=== PATIENT | female | born 1970 | race African-American/Black ===

== ENCOUNTER 2021-03-16 11:15 | Day surgery (SDC) | payer OTHER ==
[~2021-03-16] VITALS: Ht 177.8 cm; Wt 75.2 kg
[~2021-03-16 11:15] MED LIST: BLAC160C PO; CETI10CA PO; CETI10TA16 PO; DIPH25CA58 PO; EPIPEN 2-P0.3 MG/0.3 IJ; HYDROmorphone 2 MG/ML VIAL IVP PRN; IV RINGERS,LACTATED 1000ML 1,000 ML IV SCH; MORPHINE SULFATE 2 MG/ML INJ. IVP PRN; MULT-445 PO; OMAL150V SQ; PRED20TA PO; PROCHLORPERAZINE 10 MG/2 ML VIAL. IVP PRN; SOY1TABL2 PO; fentaNYL PF VIAL 100 MCG/2 ML VIAL IVP PRN
[2021-03-16] MEDS ORDERED: PROPOFOL 10 MG/ML (20ML) VIAL. IV ONE (11:25)
[2021-03-16] MEDS ORDERED: LIDOCAINE 1% PF 5 ML VIAL. ONE (11:25)
[2021-03-16] MEDS ORDERED: fentaNYL PF VIAL 100 MCG/2 ML VIAL ONE ×2 (11:25→14:29)
[2021-03-16] MEDS ORDERED: MIDAZOLAM HCL/PF 2 MG/2 ML VIAL. ONE (11:25)
[2021-03-16 11:52] VITALS: BP 115/69
--- NOTE | 2021-03-16 12:04 | EKG ---
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
[2021-03-16 12:09] LABS: BASO % 1 % (0-3); EOS # 0.1 x10^3/uL (0.0-0.7); EOS % 3 % (0-3); HEMATOCRIT 35.5 % (36.0-47.0); HEMOGLOBIN 11.9 g/dL (12.0-15.5); LYMPH % 44 % (24-48); MEAN CORPUSCULAR HEMOGLOBIN 29 pg (25-35); MEAN CORPUSCULAR HGB CONC 34 g/dL (31-37); MEAN CORPUSCULAR VOLUME 86 fL (79-100); MONO # 0.5 x10^3/uL (0.0-1.1); MONO % 11 % (0-9); NEUT # 1.8 x10^3/uL (1.8-7.7); NEUT % 41 % (31-73); PLATELET COUNT 176 x10^3/uL (140-400); RED BLOOD COUNT 4.15 x10^6/uL (3.50-5.40); RED CELL DISTRIBUTION WIDTH 12.5 % (11.5-14.5); WHITE BLOOD COUNT 4.5 x10^3/uL (4.0-11.0)
[2021-03-16 12:20] LABS: CALCIUM 9.4 mg/dL (8.5-10.1); CREATININE 1.1 mg/dL (0.6-1.0); GFR 63.4; POTASSIUM 3.7 mmol/L (3.5-5.1)
[2021-03-16] MEDS ORDERED: BUPIVACAINE MPF 0.25% 30 ML VIAL. ONE (13:02)
[2021-03-16] MEDS ORDERED: ONDANSETRON PF 4 MG/2 ML VIAL. ONE (14:12)
[2021-03-16] MEDS ORDERED: PHENYLEPHRINE in 0.9% NACL PF 1 MG/10 ML SYRINGE. IV ONE (14:12)
[2021-03-16] MEDS ORDERED: DEXAMETHASONE SOD PHOS 4 MG/ML VIAL ONE (14:12)
[2021-03-16] MEDS: fentaNYL PF VIAL 100 MCG/2 ML VIAL IVP PRN ×2 (14:34→15:25)
[2021-03-16 14:59] VITALS: BP 160/87
--- NOTE | 2021-03-18 11:50 | PDOC4 ---
OPERATIVE NOTE Date: Date: Mar 16, 2021 Pre-Op Diagnosis: Bilateral axillary breast tissue Post-Op Diagnosis: Same Procedure Performed: Excision bilateral axillary breast tissue, CPT 60916-23 Surgeon: Dixie Marc MD Anesthesia Type: General Blood Loss: 20mL Specimans Obtained: Bilateral axillary breast tissue Findings: See operative note Complications: None Operative Note: Informed consent was obtained in the perioperative holding area. The patient was marked and photographed. The patient was then transported to the operating room and placed in the supine position. A surgical timeout was performed verifying the correct patient and the correct procedure. Sequential compression devices were applied to both lower extremities and were functioning prior to the induction of anesthesia. Antibiotics were administered. General endotracheal anesthesia was initiated. The chest and arms were prepped with Cholorprep and draped in the usual sterile fashion. For each side the procedure proceeded as follows: The markings were re-delineated. An elliptical incision was made encompassing the accessory tissue and the maximum skin laxity. The specimen was sent for pathology. Hemostasis was achieved with electrocautery. space was approximated with 2-0 Vicryl sutures. A Waterfall drain was was placed. The skin was approximated with 4-0 running Monocryl. A compression dressing was fashioned. The patient tolerated the procedure well without complications. Needle and sponge count were correct. DIXIE MARC MD Mar 18, 2021 11:50
--- NOTE | 2021-03-18 18:09 | PATHOLOGY ---
[facility] Accession Number: [id number] . 01 Material submitted: . PART A: breast - RIGHT AXILLARY BREAST TISSUE. Modifiers: right, axilla PART B: breast - LEFT AXILLARY BREAST TISSUE. Modifiers: left, axilla . 01 Clinical history: . EXCISION OF BILATERAL AXILLARY BREAST TISSUE ACCESSORY BREAST TISSUE . . 02 Diagnosis: A. Segments of skin and subcutaneous tissue, right axillary tissue: - Ectopic breast tissue. . B. Segments of skin and subcutaneous tissue, left axillary tissue: - Ectopic breast tissue. (JPM:gustabo; 03/18/2021) [facility] [place] 1502 Local . 02 Comment: There is no atypia or evidence of malignancy. (JPM:gustabo; 03/18/2021) . 02 Electronically signed: . Vivek Thornton MD, Pathologist NPI- [id number] . 01 Gross description: . A. The specimen is received in formalin, labeled "Sushma Shah, right axillary breast tissue". Received are multiple segments of bright yellow fibroadipose tissue with attached knowles-brown skin measuring 8.7 x 7.2 x 2.5 cm in aggregate dimensions. Sectioning reveals bright yellow lobulated tissue with no grossly distinct nodules or lesions. The specimen is submitted representatively in cassettes A1 and A2. . B. The specimen is received in formalin, labeled "Sushma Shah, left axillary breast tissue". Received are multiple segments of bright yellow fibroadipose tissue with attached knowles-brown skin measuring 6.6 x 3.5 x 2.8 cm in aggregate dimensions. Sectioning reveals bright yellow fibrofatty cut surfaces with no grossly distinct nodules or lesions. The specimen is submitted representatively in cassettes B1 and B2. (CAA; 03/17/2021) QAC/QAC 03/17/2021 1134 Local . 02 Pathologist provided ICD-10: Z03.89 . 02 CPT . 088866, [id number] Specimen Comment: A courtesy copy of this report has been sent to [phone], [phone] Specimen Comment: [id number] Specimen Comment: Report sent to / DR ABREU Performed at: 01 [facility] [address], [place] [id number] MD Duc Stewart MD Phone: [phone] Performed at: 02 [facility] [address] [place], [place] [id number] MD Vivek Thornton MD Phone: [phone]
== END 2021-03-16 15:35 | disposition home or self-care (01) ==
LOC: SURG 11:15
PROVIDERS: ATTEND Plastic Surgery
DX: Q83.1 Accessory breast (principal); N64.89 Other specified disorders of breast; Z79.899 Other long term (current) drug therapy; Z98.890 Other specified postprocedural states
CPT/HCPCS: 19120; 36415; 80048; 81025; 85025; 93005; A4209; A4930; A6253; A6254; A6258; J0690; J1100; J2250; J2370; J2405; J2704; J3010; J3490

== ENCOUNTER → 2021-04-24 | Outpatient (CLI) | payer OTHER ==
[~2021-04-24] MED LIST changes: -HYDROmorphone 2 MG/ML VIAL IVP PRN; -IV RINGERS,LACTATED 1000ML 1,000 ML IV SCH; -MORPHINE SULFATE 2 MG/ML INJ. IVP PRN; -PROCHLORPERAZINE 10 MG/2 ML VIAL. IVP PRN; -fentaNYL PF VIAL 100 MCG/2 ML VIAL IVP PRN
--- NOTE | 2021-04-25 09:39 | KCIC ---
INDICATION: Chronic pain in the elbow, hip and spine COMPARISON: None. IMPRESSION: Lumbar spine: 5 views obtained. Mild scoliotic curvature of the lumbar spine. There is some degenerat odilia changes of the sacroiliac joints. Degenerative changes the spine with mild osteophyte formation a t the vertebral body endplates as well as mild facet hypertrophy. No acute fracture or dislocation. Right elbow: 3 views obtained. No definite acute fracture or dislocation. Pelvis and right hip: 2 views obtained. Mild degenerative changes of the hip without dislocation. The re is a small ossific density seen adjacent to the right iliac wing which could be a calcification wi thin the soft tissues with alternative causes including a small avulsion injury. Electronically signed by: Leonel Quevedo MD (04/25/2021 9:37 AM) [id number]
== END ==
LOC: KCIC 14:38
PROVIDERS: ATTEND Family Medicine
DX: M47.816 Spondylosis without myelopathy or radiculopathy, lumbar region (principal); M25.78 Osteophyte, vertebrae; M41.86 Other forms of scoliosis, lumbar region; M16.11 Unilateral primary osteoarthritis, right hip; M46.1 Sacroiliitis, not elsewhere classified; M54.31 Sciatica, right side; M25.551 Pain in right hip; M25.521 Pain in right elbow
CPT/HCPCS: 72110; 73080; 73501